=== PATIENT | male | born 1995 | race Two or more races ===

== ENCOUNTER 2020-09-20 20:54 | Emergency (ER) | payer OTHER, SELFPAY ==
--- NOTE | ~2020-09-20 | XR_ITS ---
EXAMINATION: XR LUMBOSACRAL SPINE CLINICAL INFORMATION: Status post blunt injury COMPARISON: None TECHNIQUE: Three views of the lumbosacral spine. FINDINGS: The vertebral bodies and posterior elements are normal. The disc spaces are preserved and the vertebral alignment is normal. The paraspinal soft tissues are normal. XR/XR lumbar spine 2-3V IMPRESSION: Unremarkable examination.
--- NOTE | 2020-09-20 22:39 | ED.BACK ---
HPI - Back Pain/Injury General Chief Complaint: Back Pain/Injury Stated Complaint: work injury Time Seen by Provider: 09/20/20 21:26 Source: patient Mode of arrival: ambulatory Limitations: no limitations History of Present Illness HPI Narrative: Patient injured his low back to electric panel while pulling a staircase patient ambulatory without any significant distress no history of prior back pain MD elicited complaint: back pain Related Data Previous Rx's Medication Instructions Recorded ibuprofen 600 mg PO Q6H PRN #20 tab 09/20/20 Allergies Allergy/AdvReac Type Severity Reaction Status Date / Time No Known Allergies Allergy Unverified 01/01/20 19:26 [No Known Allergies*] Review of Systems Review of Systems: Yes all other systems are reviewed and are negative PMFSH Past Medical History Medical History No known health problems Social History Social History Advance Directives: No Advance Directives Information Provided: No Physical Exam Vital Signs: Vital Signs: Last Vital Signs Temp 98.4 F 09/20/20 22:50 Pulse 74 09/20/20 22:50 Resp 14 09/20/20 22:50 BP 127/87 09/20/20 22:50 Pulse Ox 100 09/20/20 22:50 Body Mass Index 21.7 Const: General: comfortable and no acute distress Orientation/consciousness: patient oriented x3 : General: Yes no CVA tenderness Back/Spine/Pelvis: Back: no CVA tenderness Thoracic/Lumbar Spine: thoracic and lumbar spine normal to inspection, thoraco-lumbar ROM normal, straight leg raise negative bilaterally, thoraco-lumbar spasm and lumbar spinal tenderness Back/spine/pelvis image: 1. Local tenderness right side of lower lumbar spine no bony deformity Neuro: General: patient oriented x3, moves all extremities and no focal motor deficits Discharge Plan Discharge Clinical Impression: Strain of lumbar region Patient Disposition: Home, Self-Care Instructions: Back Pain (ED) Additional Instructions: Apply ice Ibuprofen for pain Prescriptions: New ibuprofen 600 mg tablet 600 mg PO Q6H PRN (Reason: pain) Qty: 20 RF: 0 Interventions: ED Discharge Assessment Last Done: 09/20/20 23:46 Discharge Date/Time: 09/20/20 23:50
[2020-09-20 22:50] VITALS: BP 127/87; PULSE 74; RESP 14; TEMP 36.9; O2SAT 100; BMI 21.7
== END 2020-09-20 23:50 | disposition home or self-care (01) ==
PROVIDERS: Emergency Provider Internal Medicine
DX: S39.012A Strain of muscle, fascia and tendon of lower back, initial encounter (principal); X58.XXXA Exposure to other specified factors, initial encounter; Y93.9 Activity, unspecified; Y92.9 Unspecified place or not applicable; Y99.9 Unspecified external cause status
CPT/HCPCS: 72100; 99283